=== PATIENT | female | born 1985 | race African-American/Black ===

== ENCOUNTER 2017-03-27 14:57 | Emergency (ER) | payer OTHER ==
[~2017-03-27] VITALS: Ht 157.5 cm; Wt 83.9 kg
[2017-03-27 15:03] VITALS: BP 132/73
--- NOTE | 2017-03-27 15:29 | PHYS DOC ---
Past Medical History Past Medical History: No Pertinent History Past Surgical History: No Surgical History, Tubal ligation Alcohol Use: Occasionally Drug Use: None Adult General Chief Complaint Chief Complaint: UPPER EXTREMITY PAIN HPI HPI Patient is a 31 year old female who presents with right upper extremity pain that began a week ago. Patient is complaining of pain around her distal humerus elbow to mid forearm that only occurs on extension of the elbow. Patient denies any injury. 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 Patient denies any numbness or tingling to the right upper extremity. Patient describes the pain as throbbing and very mild. Review of Systems Review of Systems Constitutional: Denies fever or chills [] Eyes: Denies change in visual acuity, redness, or eye pain [] HENT: Denies nasal congestion or sore throat [] Musculoskeletal: Right forearm pain Integument: Denies rash or skin lesions [] Neurologic: Denies headache, focal weakness or sensory changes [] Endocrine: Denies polyuria or polydipsia [] Allergies Allergies Allergies Coded Allergies Type Severity Reaction Last Updated Verified No Known Drug Allergies 03/27/17 No Physical Exam Physical Exam Constitutional: Well developed, well nourished, no acute distress, non-toxic appearance. [] HENT: Normocephalic, atraumatic, bilateral external ears normal, oropharynx moist, no oral exudates, nose normal. [] Abdomen: Bowel sounds normal, soft, no tenderness, no masses, no pulsatile masses. [] Skin: Warm, dry, no erythema, no rash. [] Back: No tenderness, no CVA tenderness. [] Extremities: Right forearm with no obvious deformity, no ecchymosis, no tenderness on palpation of the right forearm. Full range of motion to the right elbow including plantar flexion and also flexion of the right elbow. Pain noted on extension of the right elbow. +2 right radial pulse. Cap refill less than 2 seconds the right upper extremity. Adequate radial ulnar and median sensation to the right forearm. Neurologic: Alert and oriented X 3, normal motor function, normal sensory function, no focal deficits noted. [] Psychologic: Affect normal, judgement normal, mood normal. [] Current Patient Data Vital Signs Vital Signs Date Time Temp Pulse Resp B/P (MAP) Pulse Ox O2 Delivery O2 Flow Rate FiO2 03/27/17 15:03 98.0 79 18 100 Room Air 98.0 EKG EKG [] Radiology/Procedures Radiology/Procedures [] Course & Med Decision Making Course & Med Decision Making Pertinent Labs and Imaging studies reviewed. (See chart for details) Patient is in the ED with complaints of pain around her right forearm specifically elbow region. No known injury. We talked about multiple causes for this pain including overuse syndrome, muscle strain, tendinitis of the elbow among other things. We talked about x-rays benefits and risk. Patient preferred no x-rays. Hany wrap was applied to the right elbow by me, neurovascular exam done by me is normal, cap refill less than 2 seconds. Encouraged range of motion , encourage OTC ibuprofen 3 times a day as needed. Encourage elevation and ice. Provided orthopedic doctor for follow-up in 1-2 weeks Dragon Disclaimer Dragon Disclaimer This electronic medical record was generated, in whole or in part, using a voice recognition dictation system. Departure Departure Impression: Primary Impression: Right elbow tendonitis Additional Impression: Musculoskeletal pain Disposition: 01 HOME, SELF-CARE Condition: STABLE Referrals: IVA GREEN MD Follow-up with the provided doctor in 1-2 weeks if symptoms continue Patient Instructions: Musculoskeletal Pain Additional Instructions: You were seen for musculoskeletal pain of the right forearm. This can be caused by multiple issues including overuse syndrome, muscle strain of the joint, elbow tendinitis. Keep the Hany wrap on as tolerated. Ice and elevate the extremity when lying down. Try and take the extremity especially the elbow through full range of motion several times a day. Follow-up with the provided orthopedic doctor in one to 2 weeks if symptoms continue. Problem Qualifiers YI ALVARES APRN Mar 27, 2017 15:29
== END 2017-03-27 15:34 | disposition home or self-care (01) ==
LOC: ER 14:57
DX: M77.9 Enthesopathy, unspecified (principal); M79.1 Myalgia
CPT/HCPCS: 99282

== ENCOUNTER → 2017-04-08 | Outpatient (CLI) | payer OTHER ==
[2017-03-27 15:03] VITALS: BP 132/73
--- NOTE | 2017-04-08 17:08 | RAD ---
Pelvic ultrasound, 04/08/2017: History: Cervical polyps Transabdominal and transvaginal scans were obtained. The uterus measures 10 x 5 x 6.5 cm. The central uterine echo complex measures 10 mm which is within normal limits for the premenopausal state. Several tiny Nabothian cysts are seen. There is a tiny amount of fluid in the endocervical canal. The ovaries are of normal size. There are small follicular cysts in both ovaries. No adnexal mass is seen. No free fluid is evident in the pelvis. IMPRESSION: No significant pelvic abnormality is detected.
== END | disposition home or self-care (01) ==
LOC: US 16:08
PROVIDERS: ATTEND Family Medicine
DX: N84.1 Polyp of cervix uteri (principal)
CPT/HCPCS: 76830; 76856

== ENCOUNTER → 2019-11-02 | Outpatient (CLI) | payer OTHER ==
--- NOTE | 2019-11-02 16:19 | KCIC ---
Left breast ultrasound: Reason for examination: Left breast pain at the 4:00 to 8:00 position for 3 weeks. Ultrasound examination of the left breast was performed with attention to the area of clinical concern and the left axilla. At the 7:00 position 4 cm from the nipple, there is a small 2.8 mm hypoechoic fibrocystic lesion. At the 8:00 position 3 cm from the nipple, there is a 6.6 mm hypoechoic fibrocystic lesion. No suspicious nodules are seen. No abnormal appearing lymph nodes are seen in the axilla. IMPRESSION: Benign-appearing fibrocystic lesions at the 7:00 and 8:00 positions. No suspicious abnormality seen. Recommend 6 month follow-up with ultrasound. BI-RADS Category 3: Probably Benign. "Our facility is accredited by the [employer] Mammography Program." This patient's information has been entered into a reminder system for the patient to be notified with the results of her examination and a target date for the next mammogram. Electronically signed by: Brittny Tony MD (11/02/2019 4:16 PM) [id number]
== END | disposition home or self-care (01) ==
LOC: KCIC US 07:52
PROVIDERS: ATTEND Obstetrics & Gynecology
DX: N64.89 Other specified disorders of breast (principal)
CPT/HCPCS: 76641

== ENCOUNTER → 2020-02-28 | Outpatient (CLI) | payer OTHER ==
--- NOTE | 2020-02-28 16:15 | RAD ---
Exam: VENOUS LOWER EXTREMITY LEFT Indication: Reason: / Spl. Instructions: / History: Technique: Color-flow and pulsed wave duplex ultrasound with compression of venous structures of the left lower extremity. Comparison: None Available. Findings: Duplex ultrasound with compression of the deep venous structures of the left lower extremity from the common femoral vein through the popliteal vein is negative for DVT. The posterior tibial and peroneal veins are segmentally visualized and patent where seen. Normal venous waveforms and augmentation are noted throughout. Impression: No evidence for DVT in the left lower extremity. Electronically signed by: Gee Royal MD (02/28/2020 4:12 PM) [facility]
== END | disposition home or self-care (01) ==
LOC: US 14:56
PROVIDERS: ATTEND Registered Nurse
DX: M79.605 Pain in left leg (principal); R22.42 Localized swelling, mass and lump, left lower limb
CPT/HCPCS: 93971